=== PATIENT | female | born 1935 | race Caucasian/White ===

== ENCOUNTER 2024-06-13 14:59 | Emergency (ER) | payer MEDICARE, OTHER ==
[2024-06-13 16:40] LABS: #Basophils 0.04 10x3/uL (0.0-0.2); #Eosinophils 0.11 10x3/uL (0.0-0.5); #Monocytes 1.11 10x3/uL (0.0-1.1); #Neutrophils 5.79 10x3/uL (1.5-8.4); %Basophils 0.5 % (0.0-2.0); %Eosinophils 1.2 % (0.0-6.0); %Lymphocytes 19.5 % (18.0-47.0); %Monocytes 12.6 % (0.0-10.0); %Neutrophils 65.7 % (40.0-75.0); Hematocrit 34.2 % (34.9-44.5); Mean Corpuscular HGB CONC 32.2 g/dL (32.0-36.0); Mean Platelet Volume 8.7 fL (7.4-10.4); Platelet Count 416 10x3/uL (150-450); Red Blood Cell (RBC) Count 3.93 10x6/uL (3.90-5.03); White Blood Cell (WBC) Count 8.81 10x3/uL (3.5-10.5)
[2024-06-13 17:02] LABS: Troponin I 0.035 ng/mL (< 0.028)
[2024-06-13 17:12] LABS: ALT (SGPT) 42 U/L (Less than 34); AST (SGOT) 33 U/L (11-34); Albumin 3.4 g/dL (3.1-4.5); Alkaline Phosphatase 100 U/L (40-110); Anion Gap 14 mmol/L (10-20); BUN (Urea Nitrogen) 14 mg/dL (9.8-20.1); Bilirubin, Total 0.5 mg/dL (0.3-1.2); Calc. Creatinine Clearance 0 mL/min (70-130); Calcium 9.4 mg/dL (7.8-10.44); Carbon Dioxide 26 mmol/L (23-31); Chloride 96 mmol/L (98-107); Estimated GFR 86; Globulin 4.1 g/dL (2.4-3.5); Glucose 120 mg/dL (83-110); Lipase 54 U/L (8-78); Potassium 3.3 mmol/L (3.5-5.1); Protein, Total 7.5 g/dL (5.8-8.1); Sodium 133 mmol/L (136-145)
[2024-06-13 19:47] LABS: Bilirubin Neg (Negative); Blood, Urine 10 (Negative); Glucose, Urine (Dipstick) Normal (Negative); Ketone, Urine 50 mg/dL (Negative); Leukocyte 100 (Negative); Nitrite Positive (Negative); Protein, Urine (Dipstick) 30 mg/dl (Neg-Trace); Urobilinogen Normal mg/dL (Less than 2)
[2024-06-13] MEDS ORDERED: Labetalol HCl 100 MG/20 ML VIAL ONE (19:57)
[2024-06-13 19:58] LABS: Clarity Clear (Clear)
[2024-06-13 20:04] LABS: Bacteria/HPF 2+ HPF (None Seen); CAUTI Indications for Culture Alt mental st,lethar; RBC/HPF 0-3 HPF (0-3); Squamous Epithelial 0-3 HPF (0-3)
[2024-06-13 20:05] LABS: Urine Culture Reflex Yes Yes
[2024-06-13] MEDS ORDERED: Cefdinir 300 MG CAP ONE (22:14)
== END 2024-06-13 22:57 | disposition home or self-care (01) ==
LOC: CSHERS 14:59
DX: N39.0 Urinary tract infection, site not specified (principal); R41.82 Altered mental status, unspecified; R52 Pain, unspecified; I10 Essential (primary) hypertension; E11.9 Type 2 diabetes mellitus without complications; Z87.891 Personal history of nicotine dependence
CPT/HCPCS: 36415; 51701; 70450; 71045; 80053; 81001; 83690; 83735; 84484; 85025; 87077; 87086; 87186; 93005; 96374